=== PATIENT | female | born 1995 | race African-American/Black ===

== ENCOUNTER 2016-06-17 10:53 | Emergency (ER) | payer MEDICAID | END 2016-06-17 11:50 | disposition left against medical advice (07) | LOC: FB.ED 10:53 | DX: Z53.21 Procedure and treatment not carried out due to patient leaving prior to being seen by health care provider (principal) | CPT/HCPCS: 99282 ==

== ENCOUNTER 2017-01-07 23:18 | Emergency (ER) | payer MEDICAID ==
[2017-01-07 23:47] VITALS: BP 108/74
--- NOTE | 2017-01-08 | EDM.PDOC ---
ED HPI GENERAL MEDICAL PROBLEM - General Chief Complaint: Genitourinary Problem Stated Complaint: VAGINAL PROBLEMS Time Seen by Provider: 01/07/17 23:35 Source of Information: Reports: Patient History Limitations: Reports: No Limitations - History of Present Illness INITIAL COMMENTS - FREE TEXT/NARRATIVE: 21 yo female presents with several mos of a white vaginal discharge associated with itching. Was seen for this in urgent care and was prescribed miconazole cream that she used for 5 days with temporary relief. Is not diabetic. Moved to the area recently from [place] and does not have a local provider. Onset: Gradual Duration: Other (months) Location: Reports: Other (vaginal) Quality: Reports: Other (itchy) Severity: Mild Improves with: Reports: Other ([place]) Worsens with: Reports: Other (unknown) Context: Reports: Other (started after of her daughter.) Associated Symptoms: Reports: No Other Symptoms Treatments [employer] ARCHITECT: Reports: Other (see below) (none) - Related Data Allergies Allergy/AdvReac Type Severity Reaction Status Date / Time No Known Allergies Allergy Verified 01/07/17 23:31 Home Meds: Home Meds Fluconazole [Diflucan] 150 mg PO ONETIME #1 tab 01/07/17 [Rx] Past Medical History - Past Health History Medical/Surgical History: Denies Medical/Surgical History Genitourinary History: Reports: Other (See Below) Other Genitourinary History: Problems with white pastey vaginal discharge since baby born. [employer] TECHNICIAN History: Reports: Endocrine/Metabolic History: Reports: Other (See Below) Other Endocrine/Metabolic History: Denies diabetes. - Past Surgical History Female Surgical History: Reports: Section Social & Family History - Family History Family Medical History: Unobtainable - Tobacco Use Smoking Status *Q: Never Smoker - Caffeine Use Caffeine Use: Reports: Coffee, Soda, Tea - Recreational Drug Use Recreational Drug Use: No ED ROS GENERAL - Review of Systems Review Of Systems: See Below Constitutional: Reports: No Symptoms : Reports: Other (white vaginal discharge with itching) ED EXAM, RENAL/ - Physical Exam Exam: See Below Exam Limited By: No Limitations General Appearance: Alert, WD/WN, No Apparent Distress Eye Exam: Bilateral Eye: Normal Inspection, PERRL Ears: Normal External Exam, Normal Canal, Hearing Grossly Normal Nose: Normal Inspection, Normal Mucosa, No Blood Throat/Mouth: Normal Inspection, Normal Lips, Normal Voice, No Airway Compromise Head: Atraumatic, Normocephalic Neck: Normal Inspection Respiratory/Chest: No Respiratory Distress Cardiovascular: Regular Rate, Rhythm (Female) Exam: Other (exam declined) Extremities: Normal Inspection Neurological: Alert, Oriented, CN II-XII Intact, Normal Cognition, No Motor/ Sensory Deficits Psychiatric: Normal Affect, Normal Mood Skin Exam: Warm, Dry, Intact, Normal Color, No Rash Lymphatic: No Adenopathy Course - Vital Signs Last Recorded V/S: Last Vital Signs Temp 36.8 C 01/07/17 23:30 Pulse 97 01/07/17 23:30 Resp 16 01/07/17 23:30 BP 108/74 01/07/17 23:30 Pulse Ox 100 01/07/17 23:30 Departure - Departure Time of Disposition: 00:02 Disposition: Home, Self-Care 01 Condition: Good Clinical Impression: Yeast vaginitis - Discharge Information Prescriptions: Fluconazole [Diflucan] 150 mg PO ONETIME #1 tab Referrals: PCP,Not In Area [Primary Care Provider] - Forms: ED Department Discharge
== END 2017-01-08 00:20 | disposition home or self-care (01) ==
LOC: FB.ED 23:18
DX: B37.3 Candidiasis of vulva and vagina (principal)
CPT/HCPCS: 99283